=== PATIENT | female | born 1995 | race Caucasian/White ===

== ENCOUNTER 2020-03-06 10:32 | Emergency (ER) | payer OTHER ==
[~2020-03-06 10:32] MED LIST: CYCLOBENZAPRINE10 MG PO; IBUPROFEN400 MG PO; IBUPROFEN600 MG PO; IMITREX50 MG PO; KEFLEX500 MG PO; MACROBID 100 M100 MG PO; ONDANSETRON ODT4 MG PO; PERCOCET 5/325 T1 EA PO; PYRIDIUM200 MG PO; TORADOL 10 MG T10 MG PO; ZOFRAN ODT 4 MG4 MG SL
== END 2020-03-06 11:50 | disposition home or self-care (01) ==
LOC: ER1 10:32
DX: M72.2 Plantar fascial fibromatosis (principal); E11.9 Type 2 diabetes mellitus without complications; Z88.0 Allergy status to penicillin
CPT/HCPCS: 73630; 96372; 99283; J1885

== ENCOUNTER → 2020-03-16 | Outpatient (CLI) | payer OTHER | LOC: KOH-I 09:45 | DX: S92.402A Displaced unspecified fracture of left great toe, initial encounter for closed fracture (principal) | CPT/HCPCS: 73630 ==

== ENCOUNTER → 2020-06-01 | Outpatient (CLI) | payer OTHER | LOC: KOH-I 09:37 | DX: M79.672 Pain in left foot (principal) | CPT/HCPCS: 73630; 73650 ==

== ENCOUNTER 2020-06-21 09:23 | Emergency (ER) | payer OTHER | END 2020-06-21 10:46 | disposition left against medical advice (07) | LOC: ER1 09:23 | DX: Z53.21 Procedure and treatment not carried out due to patient leaving prior to being seen by health care provider (principal) ==

== ENCOUNTER → 2020-07-06 | Outpatient (CLI) | payer OTHER | LOC: KOH-I 10:39 | DX: M79.672 Pain in left foot (principal) | CPT/HCPCS: 73620; 73650 ==

== ENCOUNTER → 2020-07-21 | Outpatient (CLI) | payer OTHER | LOC: EMI 07-18 13:45 | DX: R56.9 Unspecified convulsions (principal) | CPT/HCPCS: 70551 ==

== ENCOUNTER → 2020-08-16 | Outpatient (CLI) | payer OTHER | LOC: HEART 5 07:47 | DX: R00.0 Tachycardia, unspecified (principal) ==

== ENCOUNTER 2021-04-15 09:21 | Emergency (ER) | payer OTHER ==
[2021-04-15 09:56] LABS: HEMOGLOBIN 14.2 gm/dl (12.3-15.3); RED BLOOD COUNT 4.24 M/UL (4.00-5.10); WHITE BLOOD COUNT 7.6 K/UL (4.5-11.0)
[2021-04-15 10:28] LABS: BUN/CREATININE RATIO 6 (0-10)
== END 2021-04-15 13:00 | disposition home or self-care (01) ==
LOC: ER1 09:21
PROVIDERS: Physician Assistant
DX: N21.0 Calculus in bladder (principal); N83.202 Unspecified ovarian cyst, left side; E10.9 Type 1 diabetes mellitus without complications; Z88.0 Allergy status to penicillin
CPT/HCPCS: 80053; 81001; 84703; 85025; 99284; Q9967

== ENCOUNTER 2021-08-08 08:21 | Emergency (ER) | payer OTHER ==
[2021-08-08] MEDS ORDERED: DECADRON6 MG PO (08:47)
[2021-08-08] MEDS ORDERED: HYDROCODON-ACE1 EAC4 PO (08:47)
[2021-08-08] MEDS ORDERED: COMPAZINE10 MG PO (08:47)
== END 2021-08-08 08:56 | disposition home or self-care (01) ==
LOC: ER1 08:21
DX: G43.909 Migraine, unspecified, not intractable, without status migrainosus (principal); I10 Essential (primary) hypertension; E10.9 Type 1 diabetes mellitus without complications; Z90.49 Acquired absence of other specified parts of digestive tract; Z90.89 Acquired absence of other organs
CPT/HCPCS: 99283

== ENCOUNTER 2021-08-19 07:33 | Emergency (ER) | payer OTHER ==
[~2021-08-19 07:33] MED LIST changes: +COMPAZINE10 MG PO; +DECADRON6 MG PO; +HYDROCODON-ACE1 EAC4 PO
[2021-08-19] MEDS ORDERED: IBUPROFEN600 MG PO (10:02)
== END 2021-08-19 10:11 | disposition home or self-care (01) ==
LOC: ER1 07:33
DX: G43.909 Migraine, unspecified, not intractable, without status migrainosus (principal); E10.9 Type 1 diabetes mellitus without complications; Z91.040 Latex allergy status
CPT/HCPCS: 96374; 99283; J1885

== ENCOUNTER 2021-08-28 08:37 | Emergency (ER) | payer OTHER | END 2021-08-28 12:09 | disposition home or self-care (01) | LOC: ER1 08:37 | DX: G43.909 Migraine, unspecified, not intractable, without status migrainosus (principal); E10.9 Type 1 diabetes mellitus without complications; Z90.89 Acquired absence of other organs; Z90.49 Acquired absence of other specified parts of digestive tract | CPT/HCPCS: 96374; 96375; 99283; J1200; J1885; J2765 ==

== ENCOUNTER 2021-09-27 09:01 | Emergency (ER) | payer OTHER | END 2021-09-27 09:44 | disposition home or self-care (01) | LOC: ER1 09:01 | DX: N61.0 Mastitis without abscess (principal); E11.9 Type 2 diabetes mellitus without complications; Z91.040 Latex allergy status | CPT/HCPCS: 96372; 99282 ==

== ENCOUNTER 2021-10-08 09:41 | Emergency (ER) | payer OTHER | END 2021-10-08 12:00 | disposition home or self-care (01) | LOC: ER1 09:41 | DX: G43.909 Migraine, unspecified, not intractable, without status migrainosus (principal); E10.9 Type 1 diabetes mellitus without complications; Z91.040 Latex allergy status | CPT/HCPCS: 96374; 96375; 99283; J1885; J2765 ==